=== PATIENT | female | born 2000 ===

== ENCOUNTER → 2021-06-05 | Emergency (ER) | payer MEDICAID, OTHER ==
[~2021-06-05] VITALS: Ht 177.8 cm; Wt 92.1 kg
[2021-06-05 16:41] VITALS: BP 124/73
== END | disposition home or self-care (01) ==
LOC: ER 16:32
DX: M79.601 Pain in right arm (principal); Z53.21 Procedure and treatment not carried out due to patient leaving prior to being seen by health care provider